=== PATIENT | male | born 1985 | race Caucasian/White ===

== ENCOUNTER 2018-08-13 02:32 | Emergency (ER) | payer OTHER ==
[~2018-08-13] VITALS: Ht 195.6 cm; Wt 131.5 kg
[~2018-08-13 02:32] MED LIST: CEPH500 PO; Indomethacin50 MG PO; Norco 5-325 Ta1 EACH PO; SULTRIDS PO; TRAM50 PO; Zovirax400 MG PO
[2018-08-13] MEDS ORDERED: Amoxicillin875 MG PO (07:26)
[2018-08-13] MEDS ORDERED: Sudogest60 MG PO (07:26)
== END 2018-08-13 07:35 | disposition home or self-care (01) ==
LOC: ER 02:32
DX: H66.91 Otitis media, unspecified, right ear (principal)
CPT/HCPCS: 99282